=== PATIENT | male | born 1950 | race African-American/Black ===

== ENCOUNTER 2017-02-27 19:33 | Inpatient (IN) | payer MEDICARE ==
[~2017-02-27] VITALS: Ht 188 cm; Wt 133.8 kg
--- NOTE | ~2017-02-27 | EC ---
PATIENT:OCTAVIA HEATH DATE OF SERVICE: 02/27/17 SEX: M MEDICAL RECORD: [id number] DATE OF : [birth year] LOCATION:D. D.212 AGE OF PATIENT: 67 ADMISSION DATE: 02/27/17 REFERRING PHYSICIAN: INTERPRETING PHYSICIAN: MANUEL POTTER MD ECHOCARDIOGRAM REPORT ECHO CHARGES 4 ECHO COMPLETE CLINICAL DIAGNOSIS: ELEVATED PRO/BNP HX HTN ECHOCARDIOGRAPHIC MEASUREMENTS (adult normal given) AC root (d.<3.7cm) LV Septum d (<1.2 cm> Valve Excursion LV Septum (systole) Left Atria (s.<4.0cm> LVPW d(<1.2cm) RV (d.<2.3cm) 4.0 LVPW (sytole) LV diastole(<5.6CM) 4.8 MV E-F(>70mm/sec) LV systole 3.5 LVOT Diameter 2.1 MV exc.(>10mm) Est.ejection fraction (50-75%) Pericardial Effusion N DOPPLER: LVIT A 88.0 E 50.0 LA RVSP 19 LVOT 99 AOP1/2T Asc. Ao 154 RVOT RA PA AV Gradient Peak 9.52 AV Mean 5.79 AV Area 2.2 MV Gradient Peak 5.77 MV Mean 2.37 MV Area COMMENTS: Automatic Vulcanizing Lead Operator: Jen BERNARDO Radiation Control Technician:1 Dr. Potter TAPE# PACS DATE OF SERVICE: 02/28/2017 Echocardiogram FINDINGS: 1. Left ventricular chamber size is within normal limits. Left ventricular systolic function is normal. Overall ejection fraction estimated at 50%. 2. Left atrium is in the upper limits of normal at 4.0 cm. Right atrium and right ventricular chamber sizes are as well in the upper limits of normal. 3. Valvular structures have normal structure and motion. ECHOCARDIOGRAM REPORT [id number] OCTAVIA HEATH 4. Doppler interrogation only reveals trace tricuspid regurgitation, no other valvular insufficiency or stenosis. 5. No evidence of pericardial effusion or left ventricular thrombus. TRANSINT:[id number] Voice Confirmation ID: [id number] DOCUMENT ID: [id number] 03/06/2017 Edited to correct date of service, dmMANUEL Delarosa MD CC: [id number] DICTATION DATE: 03/01/17 1243 DAY WORKER: 03/02/17 0057 ADM IN [address] [place] [address]
[2017-02-27 20:29] LABS: BASOPHILS 0.1 % (0-2); EOSINOPHILS 0.9 % (0-7); HEMATOCRIT 28.9 % (42.0-54.0); HEMOGLOBIN 9.5 g/dL (13.5-17.5); IMMATURE GRANULOCYTES 0.3 % (0-5); LYMPHOCYTES 8.5 % (15-50); MCH 29.4 pg (26.0-34.0); MCHC 32.9 g/dL (31.0-37.0); MCV 89.5 fL (80.0-100.0); MEAN PLATELET VOLUME 9.7 fL (7.4-10.4); MONOCYTES 4.6 % (2-11); NEUTROPHILS 85.6 % (40-80); PLATELET COUNT 190 10x3/uL (130-400); RBC 3.23 10x6/uL (4.20-6.10); RDW 14.4 % (11.5-14.5); WBC 16.8 10x3/uL (4.8-10.8)
[2017-02-27 20:40] LABS: INR 1.19 (0.85-1.17)
[2017-02-27 20:41] LABS: APTT 31.3 SECONDS (22.8-39.4)
[2017-02-27 20:53] LABS: ALBUMIN 3.3 g/dL (3.4-5.0); ANION GAP 15.2 mmol/L (8-16); BILIRUBIN - TOTAL 0.41 mg/dL (0.2-1.3); CALCIUM 7.6 mg/dL (8.5-10.1); CARBON DIOXIDE 22.8 mmol/L (21.0-32.0); CREATININE - SERUM 7.7 mg/dL (0.6-1.3); PROTEIN - SERUM 6.5 g/dL (6.4-8.2)
[2017-02-27 22:30] LABS: BASOPHILS 0.1 % (0-2); EOSINOPHILS 0.2 % (0-7); IMMATURE GRANULOCYTES 0.2 % (0-5); LYMPHOCYTES 8.6 % (15-50); MCH 28.4 pg (26.0-34.0); MCV 88.5 fL (80.0-100.0); MEAN PLATELET VOLUME 8.5 fL (7.4-10.4); MONOCYTES 3.8 % (2-11); NEUTROPHILS 87.1 % (40-80); RBC 2.61 10x6/uL (4.20-6.10); RDW 14.6 % (11.5-14.5); WBC 14.2 10x3/uL (4.8-10.8)
[2017-02-27 22:36] LABS: HEMATOCRIT 23.1 % (42.0-54.0); HEMOGLOBIN 7.4 g/dL (13.5-17.5); PLATELET COUNT 149 10x3/uL (130-400)
--- NOTE | 2017-02-27 23:10 | NUR ---
PT ARRIVED TO ICU ROOM 2303 VIA HOSPITAL BED. PT ABLE TO ANSWER QUESTIONS; ALERT AND ORIENTED. HR 90. BP 117/64. 128 KG. PT ARRIVED WITH PRBC INFUSING TO LEFT FOREARM 20 GAUGE PIV; PATENT. NGT TO LEFT NARE; CONNECTED TO LIS.
[2017-02-27 23:15] VITALS: BP 107/85
--- NOTE | 2017-02-27 23:20 | NUR ---
DR. SAMUELS AND DR. WILKINS AT BEDSIDE.
[2017-02-27 23:30] VITALS: BP 105/65
--- NOTE | 2017-02-27 23:30 | NUR ---
Pt lethargic but oriented and answering all questions. Post-syncopal episode from CT. O2 RA. Lung sounds clear to all figueroa with diminished lower lobes. NGT connected to LIWS retrieving pink content. BS present to all quadrants. HR SR with S1S2 auscultated. All peripheral pulses palpable. Capillary refill <3 seconds. Left hand 20g PIV site CDI; saline locked. Right A/C PIV site 20g CDI with PRBC gravity infusing and connected to IV pump infusing @ 150cc/hr. Dr. Tubbs here and spoken to with orders received. Dr. Bagley here at pt bedside.
[2017-02-27 23:45] VITALS: BP 101/71
--- NOTE | 2017-02-27 23:50 | NUR ---
PT C/O OF NAUSEA. ORDERS FOR PRN ZOFRAN RECEIVED. SEE EMAR FOR DETAILS.
--- NOTE | 2017-02-27 23:53 | NUR ---
2ND UNIT OF PRBC STARTED.
[2017-02-28] VITALS (28 sets, daily range): BP systolic 102–171; BP diastolic 65–106; Ht 188 cm; Wt 133.8 kg
--- NOTE | 2017-02-28 00:18 | NUR ---
16FR evans catheter placed utilizing sterile technique with scant, purulent drainage retrieved and statlock placed.
--- NOTE | 2017-02-28 00:30 | NUR ---
1st PRBC unit infusion completed. Pt resting with VSS.
--- NOTE | 2017-02-28 01:00 | NUR ---
NS IVF started to left A/C PIV site @ 50cc/hr. PRBC unit #2 continues to infuse. IV ABx infusion initiated per Dr. Bagley's order. Pt self-positioned to left side and glycerin swab provided. Pt reminded of NPO status.
--- NOTE | 2017-02-28 01:30 | NUR ---
PRBC unit #2 infusion completed. VSS and recorded to trx slip.
--- NOTE | 2017-02-28 02:00 | NUR ---
Pt incontinent of large, bloody BM with clots. Bed bath with gown and linen change completed.
--- NOTE | 2017-02-28 03:00 | NUR ---
Reassessment complete. See flowsheet. Pt awakens upon entrance into room with VSS. O2 RA with SPO2 98%. Lung sounds CTA. HR SR with S1S2 auscultated. All peripheral pulses +1 with capillary refill <3 seconds. PIV sites CDI with NS infusing @ 50cc/hr to left A/C PIV site and Left hand PIV site saline locked. BS remain present to all quadrants. Pt denies nausea or pain at this time. Solares secure; no urine retrieved. Pt continues to self-position for comfort. No other changes to note. Linens currently clean/dry. CPOC.
[2017-02-28 03:28] LABS: HEMATOCRIT 27.4 % (42.0-54.0); HEMOGLOBIN 9.1 g/dL (13.5-17.5)
--- NOTE | 2017-02-28 05:00 | NUR ---
Pt resting with PRBC infusing. NO s/s pain or distress. VSS. Pt allowed to continue resting undisturbed. Call light and bedside table remain within pt reach. CPOC.
--- NOTE | 2017-02-28 06:08 | NUR ---
Incontinent of bloody stool. Incontinence care completed.
[2017-02-28 06:33] LABS: INR 1.39 (0.85-1.17); PROTIME 16.9 SECONDS (11.6-15.0)
[2017-02-28 06:39] LABS: HEMOGLOBIN A1C 5.5 % (4.8-6.0)
[2017-02-28 06:41] LABS: % SATURATION 24 % (15-55); IRON 51 ug/dl (35-150); TOTAL IRON BIND CAPACITY 211 ug/dl (260-445); UNSAT IRON BIND CAPACITY 160 ug/dl (150-375)
[2017-02-28 06:56] LABS: CHOL - HDL RATIO 3.1 ratio (2.3-4.9); LDL-HDL RATIO 1.6 ratio (1.5-3.5); TROPONIN-I 0.046 ng/mL (0.000-0.060)
--- NOTE | 2017-02-28 07:00 | NUR ---
REC'D REPORT AMD RESUMED CARE, AAO VSS, DENIES PAIN, ASSESSMENT COMPLETE PER FLOWSHEET, CALL LIGHT IN REACH VOICES NO NEEDS AT THIS TIME
[2017-02-28 07:51] LABS: BASOPHILS 0.1 % (0-2); EOSINOPHILS 0 % (0-7); HEMATOCRIT 30.6 % (42.0-54.0); HEMOGLOBIN 10.2 g/dL (13.5-17.5); IMMATURE GRANULOCYTES 0.5 % (0-5); LYMPHOCYTES 9.2 % (15-50); MCH 29.2 pg (26.0-34.0); MCHC 33.3 g/dL (31.0-37.0); MCV 87.7 fL (80.0-100.0); MEAN PLATELET VOLUME 10.2 fL (7.4-10.4); MONOCYTES 3.5 % (2-11); NEUTROPHILS 86.7 % (40-80); PLATELET COUNT 147 10x3/uL (130-400); RDW 15.7 % (11.5-14.5); WBC 15.1 10x3/uL (4.8-10.8)
[2017-02-28 07:54] LABS: RBC 3.49 10x6/uL (4.20-6.10)
[2017-02-28 08:01] LABS: ALBUMIN 2.6 g/dL (3.4-5.0); BILIRUBIN - TOTAL 0.86 mg/dL (0.2-1.3); CALCIUM 7.1 mg/dL (8.5-10.1); CARBON DIOXIDE 18.3 mmol/L (21.0-32.0); CREATININE - SERUM 8.4 mg/dL (0.6-1.3); PROTEIN - SERUM 5.3 g/dL (6.4-8.2)
[2017-02-28 08:02] LABS: ANION GAP 20.9 mmol/L (8-16); POTASSIUM - SERUM 5.2 mmol/L (3.5-5.1)
--- NOTE | 2017-02-28 09:00 | NUR ---
AM MEDS GIVEN, PER FRED FLOWSHEET, FAMILY AT BEDSIDE, STATUS UPDATED, AWAITING TO SPEAK WITH MANISH, RE: POC, NO OTHER NEEDS AT THIS TIME
--- NOTE | 2017-02-28 09:30 | NUR ---
BLADDER SCAN COMPLETED, PER ORDER, AND VERIFIED BY TOPHER VOSS RN, 27 ML IN BLADDER, CHERY FLUSHED WITH 20 NS,WITH THE SAME BACK TO CONTAINER
--- NOTE | 2017-02-28 10:00 | NUR ---
DR WILKINS AT BEDSIDE, COUNSELED WITH AND DAUGHTER RE: DISEASE PROCESS AND POC
--- NOTE | 2017-02-28 10:15 | NUR ---
VOICE HERE FOR EVAL NEW ORDERS GIVEN
[2017-02-28 10:38] LABS: HEMATOCRIT 26.7 % (42.0-54.0); HEMOGLOBIN 9.2 g/dL (13.5-17.5)
--- NOTE | 2017-02-28 10:45 | NUR ---
RIGHT NARE NGT DC'D PER ORDER, PROCEDURE TOLERATED WITHOUT DIFFICULTY
--- NOTE | 2017-02-28 11:00 | NUR ---
RESTING WITH NO SIGNS OF DISTRESS, VSS, CALL LIGHT IN REACH, VOICES NO NEEDS AT THIS TIME, NO ACUTE CHANGE FROM PREVIOUS
--- NOTE | 2017-02-28 11:40 | NUR ---
IVF CHANGED TO BICARB GTT AT 150 CC/HR PER DR TOSCANO
--- NOTE | 2017-02-28 12:00 | NUR ---
FAMILY AT BEDSIDE, UPDATE GIVEN, NO NEEDS AT THIS TIME
--- NOTE | 2017-02-28 14:13 | NUR ---
* Is the patient Alert and Oriented? Yes 0 * How many steps to enter\exit or inside your home? 3 0 * PCP None 0 * Pharmacy [facility] in [place] 0 * Preadmission Environment Home with Family 0 * ADLs Independent 0 * List name and contact numbers for known caregivers / representatives who currently or will assist patient after discharge: Spouse - Ludy [phone] 0 * Additional services required to return to the preadmission environment? No 0 * Can the patient safely return to the preadmission environment? Yes 0 * Has this patient been hospitalized within the prior 30 days at any hospital? No 02/28/2017 14:14 DCP: Discharge Planning Patient Name: OCTAVIA HEATH Admission Status: ER Accout number: [id number] Admission Date: 02-27-2017 : 1950 Admission Diagnosis: Attending: KASEY Current LOS: 1 Anticipated DC Date: 03-03-2017 Planned Disposition: Home Primary Insurance: MEDICARE A & B Discharge Planning Comments: CM met with patient to assess DC plans/needs. Patient states he is retired from the [employer]. He states he lives at home with his , Ludy. He reports he is independent with all ADL's & IADL's. He denies using any assistive devices for mobility or having home health services in the past. At dc, he will return home with his . No needs identified or verbalized at this time. CM will follow and assist as needed. Sand Mixer: Olivia Aguilar
--- NOTE | 2017-02-28 15:00 | NUR ---
FAMILY AT BEDSIDE STATUS UPDATED, VOICES NO NEEDS AT THIS TIME
[2017-02-28] MEDS ORDERED: ZYLOPRIM100 MG PO (17:39)
[2017-02-28] MEDS ORDERED: METOPROLOL TAR100 M1 PO (17:40)
--- NOTE | 2017-02-28 17:40 | NUR ---
UA COLLECTED AND TO LAB PER ORDER
[2017-02-28] MEDS ORDERED: NORVASC10 MG PO (17:42)
[2017-02-28] MEDS ORDERED: KEFLEX500 MG PO (17:45)
[2017-02-28 17:59] LABS: APPEARANCE HAZY (CLEAR); BILIRUBIN NEGATIVE (NEGATIVE); COLOR BROWN (YELLOW); GLUCOSE NEGATIVE (NEGATIVE); KETONE NEGATIVE (NEGATIVE); LEUKOCYTE ESTERASE 2+ (NEGATIVE); NITRITE POSITIVE (NEGATIVE); PROTEIN 1+ mg/dL (NEGATIVE); UROBILINOGEN NORMAL (NORMAL)
[2017-02-28 18:00] LABS: BACTERIA MANY /hpf (NONE SEEN); RED CELLS - URINE >50 /hpf (0-5); WHITE CELLS - URINE >50 /hpf (0-5)
--- NOTE | 2017-02-28 18:04 | NUR ---
FAMILY AT BEDSIDE, STATUS UPDATED, VOICES NO NEEDS AT THIS TIME
[2017-02-28 18:09] LABS: CREATININE - URINE 95.3 mg/dL (30-125)
--- NOTE | 2017-02-28 18:30 | NUR ---
LARGE TARRY STOOL TO BEDPAN, SKINCARE GIVEN, NO OTHER NEEDS AT THIS TIME
[2017-02-28 18:51] LABS: PROTEIN - URINE 7179.9 mg/dL (0.0-11.9)
--- NOTE | 2017-02-28 19:15 | NUR ---
ASSESSMENT COMPLETE. S1S2. RR CLEAR EQUAL AND UNLABORED. AAO. PERRLA. RADIAL AND PEDAL PULSES +2. BLOODY STOOLS. CHERY CATH IN PLACE. <30ML/HR UOP. NSR SHOWING ON MONITOR. GENERALIZED WEAKNESS NOTED TO EXTREMITIES BELT FIXER STRENGTH +4; EQUAL; BILATERAL.
--- NOTE | 2017-02-28 21:00 | NUR ---
NO FAMILY DURING VISITATION. PT DENIES ANY NEEDS AT THIS TIME. VSS. NO DISTRESS NOTED. WILL CONTINUE TO MONITOR.
--- NOTE | 2017-02-28 22:30 | NUR ---
PT HAD MEDIUM BM; BLOODY. 100ML. PT CLEANED. LINENS CHANGED.
--- NOTE | 2017-02-28 23:10 | NUR ---
REASSESSMENT COMPLETE. NO ACUTE CHANGES FROM PREVIOUS ASSESSMENT. VSS. NO DISTRESS NOTED. CALL LIGHT IN REACH. PT C/O ITCH ON SOLES OF FEET. WILL CONTINUE TO MONITOR.
[2017-03-01] VITALS (23 sets, daily range): BP systolic 96–207; BP diastolic 56–113
--- NOTE | 2017-03-01 01:36 | NUR ---
PT RESTING; EYES CLOSED. VSS. NO DISTRESS NOTED. CALL LIGHT IN REACH. WILL CONTINUE TO MONITOR.
--- NOTE | 2017-03-01 03:10 | NUR ---
REASSESSMENT COMPLETE. NO ACUTE CHANGES FROM PREVIOUS ASSESSMENT. VSS. NO DISTRESS NOTED. PT VERBALIZES NO NEEDS AT THIS TIME. WILL CONTINUE TO MONITOR.
[2017-03-01 03:50] LABS: BASOPHILS 0.1 % (0-2); EOSINOPHILS 0.6 % (0-7); IMMATURE GRANULOCYTES 0.2 % (0-5); LYMPHOCYTES 19.5 % (15-50); MCH 28.5 pg (26.0-34.0); MCHC 33.1 g/dL (31.0-37.0); MEAN PLATELET VOLUME 8.7 fL (7.4-10.4); MONOCYTES 9.9 % (2-11); NEUTROPHILS 69.7 % (40-80); RBC 2.07 10x6/uL (4.20-6.10); RDW 15.4 % (11.5-14.5)
[2017-03-01 03:51] LABS: PLATELET COUNT 78 10x3/uL (130-400); WBC 8.7 10x3/uL (4.8-10.8)
[2017-03-01 03:52] LABS: HEMATOCRIT 17.8 % (42.0-54.0); HEMOGLOBIN 5.9 g/dL (13.5-17.5)
[2017-03-01 04:01] LABS: INR 1.42 (0.85-1.17); PROTIME 17.2 SECONDS (11.6-15.0)
[2017-03-01 04:24] LABS: ALBUMIN 2.1 g/dL (3.4-5.0); BILIRUBIN - TOTAL 0.4 mg/dL (0.2-1.3); CREATININE - SERUM 10.1 mg/dL (0.6-1.3); PROTEIN - SERUM 4.5 g/dL (6.4-8.2); URIC ACID 8.8 mg/dL (2.6-7.2)
--- NOTE | 2017-03-01 04:30 | NUR ---
UNIT OF PRBC STARTED. HGB 5.9. HCT 17.8.
[2017-03-01 04:39] LABS: ANION GAP 12.4 mmol/L (8-16); CALCIUM 6.5 mg/dL (8.5-10.1); CARBON DIOXIDE 26.4 mmol/L (21.0-32.0); POTASSIUM - SERUM 3.8 mmol/L (3.5-5.1)
--- NOTE | 2017-03-01 06:23 | NUR ---
UNIT OF PRBC COMPLETE. NO SIGNS OF REACTION. VSS. NO DISTRESS NOTED
--- NOTE | 2017-03-01 07:00 | NUR ---
REC'D RPEORT AND RESUMED CARE, SLEEPING AROUSABLE TO VERBAL STIMULI, ORIENTED X4, DENIES PAIN, VSS, ASSESSMENT COMPLETE, SEE FLOWSHEET, CALL LIGHT IN REACH, SELF REPOSITIONS, VOICES NO NEEDS AT THIS TIME
[2017-03-01 07:26] LABS: COMPLEMENT C4 18.1 mg/dL (17.4-52.2)
--- NOTE | 2017-03-01 07:45 | NUR ---
BATH AND LINEN CHANGE COMPLETED WITHOUT DIFFICULTY
--- NOTE | 2017-03-01 08:00 | NUR ---
CLEAR LIQUID DIET TRAY TO BEDSIDE, INDEPENDENT WITH SET UP AND EATING
[2017-03-01 08:10] LABS: ERYTHROCYTE SEDIMENTATION RATE 15 mm/hr (0-20)
--- NOTE | 2017-03-01 09:00 | NUR ---
FAMILY AT BEDSIDE, STATUS UPDATED, VOICES NO NEEDS AT THIS TIME
--- NOTE | 2017-03-01 10:09 | NUR ---
SHOWING FREQUENT PVC'S ON MOINTOR, STAT EKG AND POTASSIUM ORDERED
--- NOTE | 2017-03-01 11:30 | NUR ---
TRIALYSIS CATHETER PLCED BY DR VOSS WITHOUT DIFFICULTY, LEFT IJ, TOLERATED PROCEDURE WITHOUT DIFFICULTY, VSS
--- NOTE | 2017-03-01 11:45 | NUR ---
CHEST XRAY COMPLETED
--- NOTE | 2017-03-01 11:52 | NUR ---
FAMILY AT BEDSIDE, STATUS UPDATED VOICES NO NEEDS AT THIS TIME
--- NOTE | 2017-03-01 12:39 | NUR ---
TRIALYSIS CATH SITE BLEEDING UNTO PILLOW, DRESSING TAKEN OFF, FIBULAR ADDED TO SITE, CVL DRESSING CHANGE COMPLETED
[2017-03-01 13:17] LABS: BASOPHILS 0.1 % (0-2); EOSINOPHILS 1.2 % (0-7); IMMATURE GRANULOCYTES 0.4 % (0-5); LYMPHOCYTES 15.5 % (15-50); MCHC 35.2 g/dL (31.0-37.0); MCV 85.2 fL (80.0-100.0); MEAN PLATELET VOLUME 9.1 fL (7.4-10.4); MONOCYTES 6.1 % (2-11); NEUTROPHILS 76.7 % (40-80); PLATELET COUNT 74 10x3/uL (130-400); RDW 14.8 % (11.5-14.5); WBC 8.4 10x3/uL (4.8-10.8)
[2017-03-01 13:18] LABS: HEMATOCRIT 21.9 % (42.0-54.0); HEMOGLOBIN 7.7 g/dL (13.5-17.5); RBC 2.57 10x6/uL (4.20-6.10)
--- NOTE | 2017-03-01 17:57 | NUR ---
LABETLOL 10 MG IVP, SBP 204 POST HD
--- NOTE | 2017-03-01 18:00 | NUR ---
FAMILY AT THE BEDSIDE, STATUS UPDATED, VOICES NO NEEDS AT THIS TIME
--- NOTE | 2017-03-01 18:35 | NUR ---
PLATLETS INITIATED AT 200 CC/HR, VSS, AAO, DENIES PAIN, CALL LIGHT IN REACH VOICES NO OTHER NEEDS AT THIS TIME
--- NOTE | 2017-03-01 19:30 | NUR ---
ASSESSMENT COMPLETE. S1S2. AAO. RR CLEAR; EQUAL BILATERAL NON LABORED. RADIAL AND PEDAL PULSES +2. LEFT SUBCLAVIAN CVL. LEFT HAND AND LEFT AC PIV; PATENT. SCD IN PLACE.
[2017-03-01 20:27] LABS: HEMATOCRIT 27.6 % (42.0-54.0); HEMOGLOBIN 9.7 g/dL (13.5-17.5)
--- NOTE | 2017-03-01 20:45 | NUR ---
UNIT OF PRBC STARTED. HGB 9.7. HCT 27.6. ORDERS FOR 1 UNIT.
--- NOTE | 2017-03-01 20:50 | NUR ---
HTN NOTED. TREATED PER ORDERS. SEE EMAR FOR DETAILS.
--- NOTE | 2017-03-01 22:45 | NUR ---
UNIT OF PRBC INFUSION COMPLETE.
--- NOTE | 2017-03-01 23:08 | NUR ---
REASSESSMENT COMPLETE. NO ACUTE CHANGES FROM PREVIOUS ASSESSMENT. WILL CONTINUE TO MONITOR.
--- NOTE | 2017-03-01 23:41 | NUR ---
CONTINUES TO HAVE HTN. MONITORING CLOSELY. TREATED PER ORDERS. SEE EMAR FOR DETAILS.
[2017-03-02] VITALS (34 sets, daily range): BP systolic 132–201; BP diastolic 78–110
[2017-03-02 00:39] LABS: HEMATOCRIT 28.1 % (42.0-54.0); HEMOGLOBIN 9.7 g/dL (13.5-17.5)
--- NOTE | 2017-03-02 01:00 | NUR ---
UNIT OF PRBC STARTED. HGB 9.7. HCT 98.1.
--- NOTE | 2017-03-02 01:48 | NUR ---
PRBC INFUSING. SLIGHT TEMP NOTED. 100.4
--- NOTE | 2017-03-02 03:00 | NUR ---
REASSESSMENT COMPLETE. NO ACUTE CHANGES FROM PREVIOUS ASSESSMENT. HTN CONTINUE TO BE NOTED.
--- NOTE | 2017-03-02 04:41 | NUR ---
PT CHERY CATH LEAKING. 8ML FLUID IN BULB; INCREASED BULB TO 10ML OF FLUID. LEAKING APPEARS TO HAVE STOPPED.
[2017-03-02 04:49] LABS: BASOPHILS 0.3 % (0-2); EOSINOPHILS 1.7 % (0-7); HEMATOCRIT 30.7 % (42.0-54.0); HEMOGLOBIN 10.9 g/dL (13.5-17.5); IMMATURE GRANULOCYTES 0.3 % (0-5); LYMPHOCYTES 17.2 % (15-50); MCH 29.9 pg (26.0-34.0); MCHC 35.5 g/dL (31.0-37.0); MCV 84.3 fL (80.0-100.0); MEAN PLATELET VOLUME 9.7 fL (7.4-10.4); MONOCYTES 7.3 % (2-11); NEUTROPHILS 73.2 % (40-80); PLATELET COUNT 101 10x3/uL (130-400); RBC 3.64 10x6/uL (4.20-6.10); WBC 7.1 10x3/uL (4.8-10.8)
[2017-03-02 05:04] LABS: ANION GAP 12.6 mmol/L (8-16); BILIRUBIN - TOTAL 0.9 mg/dL (0.2-1.3); CALCIUM 7.6 mg/dL (8.5-10.1); CARBON DIOXIDE 29.7 mmol/L (21.0-32.0); CREATININE - SERUM 7.9 mg/dL (0.6-1.3); POTASSIUM - SERUM 3.3 mmol/L (3.5-5.1)
[2017-03-02 05:05] LABS: ALBUMIN 2.8 g/dL (3.4-5.0); PROTEIN - SERUM 5.8 g/dL (6.4-8.2)
--- NOTE | 2017-03-02 05:16 | NUR ---
SPOKE WITH DR. CORMIER ORDERS RECIEVED. TO RESTART HOME MEDS; GIVE AM DOSE BEGINNING NOW.
--- NOTE | 2017-03-02 08:24 | OP ---
PATIENT NAME: OCTAVIA HEATH MEDICAL RECORD: [id number] :[birth year] LOCATION:[facility] D.2303 ADMISSION DATE:02/27/17 SURGEON: SANDRO VOSS MD DATE OF OPERATION: 03/01/2017 SURGEON: Sandro Voss MD PREOPERATIVE DIAGNOSES: 1. Anemia 2. End-stage renal disease. 3. Life-threatening hyperkalemia. POSTOPERATIVE DIAGNOSES: 1. Anemia 2. End-stage renal disease. 3. Life-threatening hyperkalemia. PROCEDURE PERFORMED: Insertion of ultrasound-guided left internal jugular Trialysis catheter. ANESTHESIA: Local. COMPLICATIONS: None. SPECIMENS: None. Case was clean. OPERATIVE COURSE: After consent was obtained, the patient was placed in the supine position on his ICU bed. A shoulder roll was placed. The left neck was prepped and draped in typical sterile fashion. Timeout was taken to confirm the correct patient and procedure. Local anesthetic was injected. The left internal jugular vein and carotid artery were identified with the ultrasound. With ultrasound guidance, the left internal jugular vein was cannulated, blood was aspirated. At this time, a wire was passed through the needle and the needle was removed. The skin was incised with an 11-blade scalpel. The dilators were passed with the wire in a standard Seldinger fashion until the tract was dilated. The Trialysis catheter was then passed over the wire in a standard Seldinger fashion. A Biopatch was placed. It was secured to the skin with 2-0 nylon suture. All 3 ports were aspirated and flushed. At the end of the procedure, all needle and instrument counts were correct. No complications occurred. The immediate postoperative chest x-ray was performed. TRANSINT:[id number] Voice Confirmation ID: [id number] DOCUMENT ID: [id number] SANDRO VOSS MD at 0824 CC: [id number] DICTATION DATE: 03/01/17 1346 WARP TIER: 03/02/17 0054 [place] [address]
--- NOTE | 2017-03-02 09:18 | NUR ---
Nutrition follow-up: Diet remains clear liquids Hempsplit placed 03/01 Labs reviewed Wt: 295# Diet to advance slowly to renal RDN following.
[2017-03-02 10:20] LABS: ANA REFLEX - DIRECT Negative (Negative)
--- NOTE | 2017-03-02 10:54 | NUR ---
0800 AM ASSESMENT IS COMPLETE SEE FLOW SHEET FOR FINDINGS.. 0830 ASSISTED OOB TO THE BSC PT WITH STOOL COMPLETE BATH AND LINEN CHANGE DONE.. 0900 WITH OUT VISITORS.. ANDREW WITH RENAL IN TO SEE PT AND BP ADDRESSED BY HER.. PT IS OOB SITTING IN CHAIR AND CLEAR LIQUID DIET IS SERVED..FEEDING SELF.. 1000 ASSISTED BACK INTO BED.. PT RESTING QUIETLY AT THIS TIME..
[2017-03-02 11:18] LABS: HEPATITIS C ANTIBODY <0.1 (0.0-0.9)
[2017-03-02 12:08] LABS: HEMOGLOBIN 10.6 g/dL (13.5-17.5)
--- NOTE | 2017-03-02 13:21 | NUR ---
1200 CHERY CATH DC PER ORDER RENAL.. DR RDIVER IN TO SEE PT AND UPDATE IS GOIVEN DR SPOKE WITH PT AT BEDSIDE.. DR TOSCANO IN TO SEE PT AND UPDATE IS GIVEN DR DRIVER AND [place] TALKING RE PT AT THE DESK.. 1220 FSBS DONE WIHTOUT INSULIN COVER CLEAR LIQUID DIET SERVED FEEDING SELF..
--- NOTE | 2017-03-02 18:13 | NUR ---
1500 FAMILY IN TO SEE PT.. 1630 FSBS NO INSULIN COVER CLEAR LIQUID DIET SERVED 1800 FAMILY IN TO SEE PT..
[2017-03-02 18:37] LABS: HEMATOCRIT 29.9 % (42.0-54.0); HEMOGLOBIN 10.2 g/dL (13.5-17.5)
--- NOTE | 2017-03-02 19:15 | NUR ---
SHIFT ASSESSMENT COMPLETED. SEE ASSESSMENT PER FLOWSHEET.
--- NOTE | 2017-03-02 19:31 | NUR ---
PRN CLONIDINE GIVEN FOR SBP >170. REPORTING THROAT IS "RAW" FEELING. WILL INFORM DR. WILKINS OF SORE THROAT WHEN ICU CALLS HIM. VERBALIZED UNDERSTANDING. WILL MONITOR.
--- NOTE | 2017-03-02 20:25 | NUR ---
2100 MEDS GIVEN. SBP 190. DBP-100. 2 HYPERTENSIVE MEDS GIVEN. FSBS ASSESSED. SUGAR-101. ICE CREAM GIVEN PER REQUEST. WILL MONITOR.
--- NOTE | 2017-03-02 21:01 | NUR ---
UNIT OF PRBC'S STARTED VIA LEFT IJ TRIALYSIS CATHETER. INFORMED OF POSSIBLE SYMPTOMS IF HE HAS A REACTION. DENIES HAVING A REACTION WITH BLOOD PRODUCTS THUS FAR. WILL MONITOR.
--- NOTE | 2017-03-02 21:20 | NUR ---
NO REACTION NOTED WITH PRBC'S. INFUSING @ 100ML/HR. WILL MONITOR.
--- NOTE | 2017-03-02 21:21 | NUR ---
IV LABETALOL GIVEN FOR INCREASED B/P IN THE 200'S SYSTOLIC AND DIASTOLIC IN THE 100'S. WILL MONITOR.
--- NOTE | 2017-03-02 23:30 | NUR ---
REASSESSMENT COMPLETED. SEE ASSESSMENT FLOWSHEET. NO NEW ACUTE CHANGES NOTED. PRBC'S INFUSING, ALMOST COMPLETE. NO REACTIONS NOTED. TEMPORAL TEMP 99.8 FARENHEIT. WILL MONITOR.
[2017-03-03] VITALS (25 sets, daily range): BP systolic 146–187; BP diastolic 65–102
--- NOTE | 2017-03-03 01:30 | NUR ---
REASSESSED VITALS ONE HOUR POST TRANSFUSION. NO REACTION NOTED. AWAKENS EASILY. NO ACUTE DISTRESS NOTED. WILL MONITOR.
--- NOTE | 2017-03-03 03:15 | NUR ---
ASSISTED WITH GETTING UP TO BSC TO HAVE A BM. LIQUID, BROWN, NO BLOOD SEEN IN BM. BACK TO BED WITH ASSIST. LEFT IJ TRIALYSIS CATHETER DRSG CHANGED DUE TO NOT IN PLACE WELL USING STERILE TECHNIQUE. WILL MONITOR.
[2017-03-03 03:36] LABS: BASOPHILS 0.3 % (0-2); EOSINOPHILS 3.3 % (0-7); HEMOGLOBIN 11.2 g/dL (13.5-17.5); IMMATURE GRANULOCYTES 0.3 % (0-5); LYMPHOCYTES 17.2 % (15-50); MCH 29.2 pg (26.0-34.0); MCHC 33.9 g/dL (31.0-37.0); MCV 86.2 fL (80.0-100.0); MEAN PLATELET VOLUME 9.2 fL (7.4-10.4); MONOCYTES 6.8 % (2-11); NEUTROPHILS 72.1 % (40-80); PLATELET COUNT 107 10x3/uL (130-400); RBC 3.83 10x6/uL (4.20-6.10); RDW 14.8 % (11.5-14.5); WBC 7.2 10x3/uL (4.8-10.8)
--- NOTE | 2017-03-03 03:50 | NUR ---
NEW B/P CUFF PLACED DUE TO MALFUNCTION. CONVERSATION ABOUT POLITICS. DENIES NEEDS. WILL MONITOR.
[2017-03-03 03:55] LABS: ALBUMIN 2.8 g/dL (3.4-5.0); ANION GAP 12.7 mmol/L (8-16); BILIRUBIN - TOTAL 0.83 mg/dL (0.2-1.3); CALCIUM 7.4 mg/dL (8.5-10.1); CARBON DIOXIDE 26.6 mmol/L (21.0-32.0); CREATININE - SERUM 8.3 mg/dL (0.6-1.3); MAGNESIUM - SERUM 1.5 mg/dL (1.8-2.4); PHOSPHOROUS 4.5 mg/dL (2.5-4.9); POTASSIUM - SERUM 3.3 mmol/L (3.5-5.1)
--- NOTE | 2017-03-03 05:45 | NUR ---
PO CLONIDINE GIVEN FOR ELEVATED B/P. MAG AND POTASSIUM REPLACEMENT GIVEN PO. DRANK ALL OF POTASSIUM DILUTED IN APPLE JUICE. WILL MONITOR.
--- NOTE | 2017-03-03 07:00 | NUR ---
REC'D CARE OF PT. A&O X3.
--- NOTE | 2017-03-03 08:19 | NUR ---
HNT MEDS GAVE.
--- NOTE | 2017-03-03 08:34 | NUR ---
BREAKFAST TRAY SERVED.
--- NOTE | 2017-03-03 09:01 | NUR ---
Nutrition follow-up: Diet advanced to renal. +BM RDN following.
[2017-03-03 09:20] LABS: ANTI-GLOMERULAR BASMENT MEMBRN 3 units (0-20)
--- NOTE | 2017-03-03 09:21 | NUR ---
VISITORS AT BEDSIDE. UPDATED BY PT.
[2017-03-03 10:46] LABS: APPEARANCE CLEAR (CLEAR); COLOR YELLOW (YELLOW); LEUKOCYTE ESTERASE TRACE (NEGATIVE); SPECIFIC GRAVITY 1.005 (1.005-1.020)
[2017-03-03 10:47] LABS: BILIRUBIN NEGATIVE (NEGATIVE); GLUCOSE NEGATIVE (NEGATIVE); KETONE NEGATIVE (NEGATIVE); NITRITE NEGATIVE (NEGATIVE); PROTEIN 2+ mg/dL (NEGATIVE); UROBILINOGEN NORMAL (NORMAL)
[2017-03-03 10:49] LABS: BACTERIA FEW /hpf (NONE SEEN); RED CELLS - URINE 0-5 /hpf (0-5)
--- NOTE | 2017-03-03 10:50 | NUR ---
LEFT AC AND L FOREARM PIV=SL
--- NOTE | 2017-03-03 12:30 | NUR ---
UP TO BEDSIDE COMMODE. HAD 200 CC URINE AND SMALL SEMIFORMED STOOL.
--- NOTE | 2017-03-03 17:40 | NUR ---
PLACE ON VENTI MASK BY CRISTIAN FONSECA
--- NOTE | 2017-03-03 18:34 | NUR ---
FAMILY AT BEDSIDE. UPDATED.
--- NOTE | 2017-03-03 19:00 | NUR ---
SHIFT ASSESSMENT COMPLETED.SEE ASSESSMENT FLOWSHEET. FAMILY IN ROOM X2. C/O TENSION HEADACHE IN THE FRONTAL AREA OF HIS HEAD. SBP 160'S, HYDRALAZINE GIVEN AT 1815 FOR B/P. AWAKE, ALERT ORIENTED. LEFT IJ TRIALYSIS CATHETER WITH NS @ 50ML/HR INFUSING TO NURSE PORT OF TRIALYSIS. DENIES ANY NAUSEA OR VOMITING. REPORTS TAKING IT SLOW TODAY ON EATING AGAIN. SCD'S ON BILATERAL LE'S AND WORKING. GENERALIZED EDEMA TO ALL EXTREMITIES. WILL CALL MD SUPERVISOR SEWER SYSTEM FOR JUÁREZ MEDS.
--- NOTE | 2017-03-03 19:20 | NUR ---
DR. WILKINS CALLED AND TOLD ABOUT HEADACHE UNRESOLVED AFTER PRN B/P MEDS GIVEN. NEW ORDERS RECEIVED WELL TRANSFER ORDERS. WILL MONITOR.
--- NOTE | 2017-03-03 20:51 | NUR ---
2ND DOSE OF PRN MEDS GIVEN FOR HEADACHE. ALSO 2100 B/P MEDS GIVEN. FSBS ASSESSED. SUGAR-147. REPORTS EATING PIE AT DINNER. LEMON-SHISHMAREF IRA DRINK GIVEN PER REQUEST. WILL MONITOR.
--- NOTE | 2017-03-03 21:20 | NUR ---
REPORTS PAIN TO HEAD IS BETTER.
--- NOTE | 2017-03-03 23:00 | NUR ---
SON CALLED THE ICU PHONE TO TALK WITH PATIENT. PHONE OBTAINED IN ROOM SO PATIENT COULD SPEAK WITH SON.
--- NOTE | 2017-03-03 23:18 | NUR ---
PRN HYDRALAZIEN GIVEN FOR SBP >160. IV PROTONIX ALSO GIVEN PER ORDERS AFTER FLUSHING IV. DENIES NEEDS. WILL MONITOR.
[2017-03-04] VITALS (7 sets, daily range): BP systolic 152–182; BP diastolic 82–98
--- NOTE | 2017-03-04 00:27 | NUR ---
NEW BAG OF IV FLUIDS HUNG WELL IVPB. DENIES NEEDS AT PRESENT. USING THE URINAL AT THIS TIME.
--- NOTE | 2017-03-04 02:52 | NUR ---
EMPTIED URINAL OF CLEAR, YELLOW URINE. 350ML EMPTIED. AWOKE UPON REPLACING IT BACK IN ROOM. DENIES NEEDS. WILL MONITOR.
--- NOTE | 2017-03-04 04:30 | NUR ---
EYES CLOSED. MOUTH OPEN. WILL MONITOR.
--- NOTE | 2017-03-04 05:00 | NUR ---
AWAKE. TEMP ASSESSED. AM LABS DRAWN FROM LEFT IJ WITHOUT DIFFICULTY. CUP OF WATER GIVEN PER REQUEST. PRN HYDRALAZINE GIVEN FOR SBP >160MMHG. WILL MONITOR.
[2017-03-04 05:34] LABS: BASOPHILS 0.2 % (0-2); EOSINOPHILS 4.3 % (0-7); HEMATOCRIT 33.1 % (42.0-54.0); HEMOGLOBIN 11.1 g/dL (13.5-17.5); IMMATURE GRANULOCYTES 0.3 % (0-5); LYMPHOCYTES 16.4 % (15-50); MCH 29.2 pg (26.0-34.0); MCHC 33.5 g/dL (31.0-37.0); MCV 87.1 fL (80.0-100.0); MEAN PLATELET VOLUME 9.2 fL (7.4-10.4); MONOCYTES 9.2 % (2-11); NEUTROPHILS 69.6 % (40-80); PLATELET COUNT 109 10x3/uL (130-400); RDW 14.9 % (11.5-14.5); WBC 6.1 10x3/uL (4.8-10.8)
[2017-03-04 06:00] LABS: ALBUMIN 2.6 g/dL (3.4-5.0); ANION GAP 14.7 mmol/L (8-16); BILIRUBIN - TOTAL 0.61 mg/dL (0.2-1.3); CALCIUM 7.2 mg/dL (8.5-10.1); CARBON DIOXIDE 24.9 mmol/L (21.0-32.0); CREATININE - SERUM 8.3 mg/dL (0.6-1.3); MAGNESIUM - SERUM 1.6 mg/dL (1.8-2.4); POTASSIUM - SERUM 3.6 mmol/L (3.5-5.1); PROTEIN - SERUM 5.9 g/dL (6.4-8.2)
--- NOTE | 2017-03-04 06:25 | NUR ---
PO MAG GIVEN FOR DECREASED MAG LEVEL PER ELECTROLYTE PROTOCOL. WILL MONITOR.
--- NOTE | 2017-03-04 07:00 | NUR ---
REC'D REPORT FROM OUTGOING RN -
--- NOTE | 2017-03-04 08:00 | NUR ---
ASSESSMENT COMPLETE - VSS - PT DENIES ANY CONCERNS - AWAITING TRANSFER ORDERS - CPOC
--- NOTE | 2017-03-04 08:30 | NUR ---
TRANSFERRED PT TO BEDSIDE CHAIR WITH MINIMAL ASSISTANCE . CPOC
--- NOTE | 2017-03-04 08:30 | NUR ---
Brooke, FOREIGN CAR MECHANIC, RENAL AT BEDSIDE FOR ASSESSMENT - DISCUSSED PLAN OF CARE AND LABS WITH PT. PT VERBALIZED UNDERSTANDING
--- NOTE | 2017-03-04 09:00 | NUR ---
DR HOWARD AT BEDSIDE - DISCUSSED POC WITH PT.
--- NOTE | 2017-03-04 12:00 | NUR ---
DR. STALLWORTH AT BEDSIDE FOR ASSESSMENT - UPDATED MD OF GELATIOUS STOOL THIS A.M. AWAITING BED TO TRANSFER PT
--- NOTE | 2017-03-04 12:00 | NUR ---
BLOOD SUGER AT 98 . PT EATING LUNCH TRAY.
--- NOTE | 2017-03-04 14:00 | NUR ---
PT RESTING WATCHING TV - DENIES ANY NEEDS - CPOC - AWAITING ON BED TO TRANSFERR
--- NOTE | 2017-03-04 15:51 | NUR ---
POURER METAL INFORMED THIS RN TO TRANSFER PT TO ROOM:2127 - CALLED KING ERWIN - TABATHA RN HOUSEHOLD WORKER TO GIVE REPORT. PT TRANSFERRED VIA W/C BY RAG CUTTING MACHINE TENDER WITH ALL PATIENT'S BELONGINGS.
--- NOTE | 2017-03-04 16:05 | NUR ---
RECEIVED PT VIA WHEELCHAIR ACCOMPANIED BY ICU NURSE MARC. PT IS ALERT AND ORIETNED. GUEST AT BEDSIDE. ON ROOM AIR. NO MONITOR. IV SEEN TO LEFT AC THAT IS CURRENTLY SALINE LOCKED, LEFT HAND THAT IS CURRENTLY SALINE LOCKED, AND A TRIALYSIS CATHETER SEEN TO LEFT CHEST AREA WITH A NURSE PORT THAT IS CURRENTLY SALINE LOCKED. DRESSING SEEN TO TRIALYSIS CATHETER THAT IS DATED FOR 03/03/17. NO NEED AT CURRENT TIME. BED IS IN LOW POSITION, SIDE RAILS ARE UP X2, CALL LIGHT IS IN REACH, AND NON-SKID SOCKS ARE ON. WILL CONTINUE TO MONITOR AND CONTINUE WITH PLAN OF CARE.
--- NOTE | 2017-03-04 17:53 | NUR ---
PT IS CURRENTLY SITTING UP IN BED EATING DINNER. GUEST ARE AT BEDSIDE. NO NEED AT CURRENT TIME. WILL CONTINUE TO MONITOR.
--- NOTE | 2017-03-04 20:30 | NUR ---
PT RESTING IN BED. ALERT/ORIENTED. NONLABORED RESPIRATIONS ON ROOM AIR. BP ELEVATED 182/98, PRN CLONIDINE GIVEN, WELL HS MEDS. LET JUGULAR TRIALYSIS WITH NS @ 75ML/HR INFUSING. TWO SALINE LOCKS IN LEFT ARM, NEITHER WILL FLUSH. WILL REMOVE. SEE COMPLETE ASSESSMENT. CPOC. CALL LIGHT IN REACH. URINAL IN REACH.
--- NOTE | 2017-03-04 22:20 | NUR ---
FSBS 82. REMOVED BOTH NON PATENT PIV TO LEFT ARM. PT CURRENTLY VISITING WITH FRIEND. NO OTHER NEEDS.
[2017-03-05 04:00] VITALS: BP 166/92
[2017-03-05 07:29] LABS: BASOPHILS 0.2 % (0-2); EOSINOPHILS 3.5 % (0-7); HEMATOCRIT 33.5 % (42.0-54.0); HEMOGLOBIN 11.1 g/dL (13.5-17.5); IMMATURE GRANULOCYTES 0.2 % (0-5); LYMPHOCYTES 16.8 % (15-50); MCH 28.8 pg (26.0-34.0); MCHC 33.1 g/dL (31.0-37.0); MCV 86.8 fL (80.0-100.0); MEAN PLATELET VOLUME 9.5 fL (7.4-10.4); MONOCYTES 10.1 % (2-11); NEUTROPHILS 69.2 % (40-80); PLATELET COUNT 125 10x3/uL (130-400); RBC 3.86 10x6/uL (4.20-6.10); RDW 14.5 % (11.5-14.5); WBC 5.8 10x3/uL (4.8-10.8)
[2017-03-05 07:43] LABS: ALBUMIN 2.7 g/dL (3.4-5.0); ANION GAP 16.7 mmol/L (8-16); BILIRUBIN - TOTAL 0.6 mg/dL (0.2-1.3); CALCIUM 7.6 mg/dL (8.5-10.1); CARBON DIOXIDE 22.7 mmol/L (21.0-32.0); CREATININE - SERUM 8.2 mg/dL (0.6-1.3); MAGNESIUM - SERUM 1.6 mg/dL (1.8-2.4); PHOSPHOROUS 4.8 mg/dL (2.5-4.9); POTASSIUM - SERUM 3.4 mmol/L (3.5-5.1)
--- NOTE | 2017-03-05 07:43 | NUR ---
AM ROUNDING- RECEIVED REPORT FROM [employer] REPAIRER NURSE KAJAL. PT IS CURRENTLY LAYING IN BED ON BACK WITH EYES OPEN RESTING REQUESTING A CUP OF ICE AND CUP OF WATER. ON ROOM AIR. NO MONITOR. TRIALYSIS CATHETER SEEN TO LEFT SIDE OF CHEST WITH NURSE PORT, NS RUNNING AT 75CC. GAVE PT CUP OF ICE AND CUP OF ICE WATER. WILL CONTINUE TO MONITOR AND CONTINUE WITH PLAN OF CARE.
[2017-03-05 16:00] VITALS: BP 175/95
--- NOTE | 2017-03-05 18:03 | NUR ---
PT IS CURRENTLY LAYING IN BED ON BACK WITH EYES OPEN RESTING. IS AT BEDSIDE. NO NEED AT CURRENT TIME. WILL CONTINUE TO MONITOR.
[2017-03-05 21:30] VITALS: BP 176/97
[2017-03-06 01:07] VITALS: BP 159/88
[2017-03-06 05:26] VITALS: BP 153/89
[2017-03-06 07:07] LABS: BASOPHILS 0.2 % (0-2); EOSINOPHILS 2.8 % (0-7); HEMATOCRIT 32.6 % (42.0-54.0); HEMOGLOBIN 10.7 g/dL (13.5-17.5); IMMATURE GRANULOCYTES 0.2 % (0-5); LYMPHOCYTES 16.2 % (15-50); MCH 28.6 pg (26.0-34.0); MCHC 32.8 g/dL (31.0-37.0); MCV 87.2 fL (80.0-100.0); MEAN PLATELET VOLUME 9.4 fL (7.4-10.4); MONOCYTES 9.5 % (2-11); NEUTROPHILS 71.1 % (40-80); PLATELET COUNT 136 10x3/uL (130-400); RBC 3.74 10x6/uL (4.20-6.10); RDW 14.3 % (11.5-14.5)
[2017-03-06 07:21] LABS: ALBUMIN 2.5 g/dL (3.4-5.0); ANION GAP 13.9 mmol/L (8-16); BILIRUBIN - TOTAL 0.4 mg/dL (0.2-1.3); CALCIUM 7.3 mg/dL (8.5-10.1); CARBON DIOXIDE 22.7 mmol/L (21.0-32.0); CREATININE - SERUM 8.2 mg/dL (0.6-1.3); POTASSIUM - SERUM 3.6 mmol/L (3.5-5.1); PROTEIN - SERUM 5.8 g/dL (6.4-8.2)
--- NOTE | 2017-03-06 07:39 | NUR ---
AM ROUNDS - PT RESTING QUIETLY, DENIES NEEDS AND PAIN AT THIS TIME. INTRODUCED SELF AND PLACE NAME ON WHITE BOARD. BREATHING UNLABORED AND EVEN. SIDE RAILS UP X2, BED IN LOWEST POSTION, FLOOR FREE FROM CLUTTER. WILL CTM.
--- NOTE | 2017-03-06 08:16 | NUR ---
AT BEDSIDE DISCUSSING OPTIONS WITH PT. PTS BUN/CR STILL ELEVATED HOWEVER PT IS READY TO BE DISCHARGED AND IS HOPING HIS KIDNEYS WILL HEAL ON THEIR OWN. OFFERED FURTHER DIALYSIS AND RENAL BIOPSY BUT PT STILL FEELS LIKE HE WOULD RATHER BE DISCHARGED TAKING THE RISK IN HOPES HIS KIDNEYS WILL IMPROVE ON THIER OWN. PT AGREED TO SCHEDULE F/U LABS IN OFFICE ON MONDAY IF HE CAN BE DISCHARGED TODAY. WILL DISCUSS WITH PRIMARY AND [facility].
[2017-03-06 10:41] LABS: APPEARANCE CLEAR (CLEAR); BILIRUBIN NEGATIVE (NEGATIVE); COLOR YELLOW (YELLOW); GLUCOSE NEGATIVE (NEGATIVE); KETONE NEGATIVE (NEGATIVE); LEUKOCYTE ESTERASE TRACE (NEGATIVE); NITRITE NEGATIVE (NEGATIVE); PROTEIN 2+ mg/dL (NEGATIVE); UROBILINOGEN NORMAL (NORMAL)
[2017-03-06 10:42] LABS: BACTERIA FEW /hpf (NONE SEEN); EPITHELIAL CELLS 0-5 /hpf (0-5); RED CELLS - URINE 0-5 /hpf (0-5)
[2017-03-06 10:54] LABS: CREATININE - URINE 55.3 mg/dL (30-125); PRO/CRE RATIO URINE 2.5 mg/g; PROTEIN - URINE 138.6 mg/dL (0.0-11.9)
[2017-03-06 12:00] VITALS: BP 158/89
--- NOTE | 2017-03-06 14:59 | NUR ---
PT RESTING QUIETLY. DENIES PAIN AND NEEDS. ANXIOUS ABOUT POSSIBLITY OF D/C. REPORTS BEING "READY TO GO HOME." EXPLAINED TO THE PT THAT THERE HAVE BEEN NO D/C ORDERS PUT IN YET. WILL CTM.
[2017-03-06 16:00] VITALS: BP 186/94
[2017-03-06 16:11] LABS: ANCA - ANTIMYELOPEROXIDASE <9.0 U/mL (0.0-9.0); ANCA - ANTIPROTEINASE 3 <3.5 U/mL (0.0-3.5); ANCA - ATYPICAL <1:20 titer (Neg:<1:20); ANCA - CYTOPLASMIC <1:20 titer (Neg:<1:20); ANCA - PERINUCLEAR <1:20 titer (Neg:<1:20)
[2017-03-06] MEDS ORDERED: CATAPRES0.2 MG PO (16:24)
[2017-03-06] MEDS ORDERED: Levaquin PO (16:24)
[2017-03-06] MEDS ORDERED: FLAGYL250 MG PO (16:24)
[2017-03-06] MEDS ORDERED: FLORAJEN3 CAPS460 MG PO (16:25)
--- NOTE | 2017-03-06 17:03 | NUR ---
Patient Name: OCTAVIA HEATH Encounter No: [id number] : 1950 Primary Insurance: MEDICARE A & B Anticipated DC Date: 03-03-2017 Planned Disposition: Home DCP follow-up note: CM MET WITH PT AND SPOUSE IN ROOM TO DISCUSS DISCHARGE NEEDS AND PLANNING. CM DISCUSSED AVAILABILITY OF HOME HEALTH, REHAB SERVICES AND MEDICAL EQUIPMENT. PT DENIES DISCHARGE NEEDS REPORTING HIS SPOUSE TAKES CARE OF EVERYTHING FOR PT. PT'S SPOUSE TO TRANSPORT HOME AT DISCHARGE TODAY. IMPORTANT MESSAGE FROM MEDICARE PROVIDED AND EXPLAINED. JUDIE RYAN, CASE MANAGEMENT
--- NOTE | 2017-03-06 17:23 | NUR ---
TRIALYSIS CATHETER REMOVED. PT ASKED TO BEAR DOWN AND HOLD BREATH ON REMOVAL, REMOVED WITH CATHETER INTACT. PRESSURE HELD FOR 5 MINTUES AND PT INSTRUCTED TO LAY FLAT FOR AT LEAST 10 MINUTES AFTER REMOVAL. D/C INSTRUCTIONS GIVEN, PT VERBALIZED UNDERSTANDING. PT RESTING QUIETLY, WAITING ON ESCORT.
[2017-03-07 10:16] LABS: SPE - A/G RATIO 1.2 (0.7-1.7); SPE - ALBUMIN 2.5 g/dL (2.9-4.4); SPE - ALPHA-1 GLOBULIN 0.3 g/dL (0.0-0.4); SPE - ALPHA-2 GLOBULIN 0.5 g/dL (0.4-1.0); SPE - BETA GLOBULIN 0.6 g/dL (0.7-1.3); SPE - GAMMA GLOBULIN 0.7 g/dL (0.4-1.8); SPE - M-SPIKE Not Observed g/dL (Not Observed); SPE - TOTAL PROTEIN 4.6 g/dL (6.0-8.5)
[2017-03-08 18:10] LABS: UPE RAND - ALBUMIN 63.4 % (()); UPE RAND - ALPHA 1 GLOBULIN 7.7 % (()); UPE RAND - ALPHA 2 GLOBULIN 7.9 % (()); UPE RAND - BETA GLOBULIN 13.4 % (()); UPE RAND - GAMMA GLOBULIN 7.6 % (())
== END 2017-03-06 18:17 | disposition home or self-care (01) | DRG 377 ==
LOC: D.ER 19:33 → D.M2 22:03 → D.ICU 22:03 → D.M2 03-04 15:58
PROVIDERS: Emergency Medicine; Internal Medicine Gastroenterology; Internal Medicine Nephrology; Nurse Practitioner Acute Care; ADMIT Family Medicine Adult Medicine
PROC: 0D9670Z Drainage of Stomach with Drainage Device, Via Natural or Artificial Opening (ICD-10-PCS; principal; 2017-02-27)
PROC: 0T9B70Z Drainage of Bladder with Drainage Device, Via Natural or Artificial Opening (ICD-10-PCS; 2017-02-27)
DX: K92.2 Gastrointestinal hemorrhage, unspecified (principal); N17.0 Acute kidney failure with tubular necrosis; K57.32 Diverticulitis of large intestine without perforation or abscess without bleeding; E87.2 Acidosis; D50.0 Iron deficiency anemia secondary to blood loss (chronic); I12.9 Hypertensive chronic kidney disease with stage 1 through stage 4 chronic kidney disease, or unspecified chronic kidney disease; N18.9 Chronic kidney disease, unspecified; E86.0 Dehydration; I95.9 Hypotension, unspecified; N30.90 Cystitis, unspecified without hematuria; D69.6 Thrombocytopenia, unspecified; E11.22 Type 2 diabetes mellitus with diabetic chronic kidney disease; E11.21 Type 2 diabetes mellitus with diabetic nephropathy; B96.89 Other specified bacterial agents as the cause of diseases classified elsewhere